=== PATIENT | female | born 1985 | race Caucasian/White ===

== ENCOUNTER 2016-07-04 13:33 | Emergency (ER) | payer OTHER ==
[~2016-07-04] VITALS: Ht 172.7 cm; Wt 81.8 kg
[~2016-07-04 13:33] MED LIST: ABILIFY15 MG PO; ALBUTEROL SULF8.5 GM IH; AMBIEN10 MG PO; AMOXICILLIN500 MG PO; Ambien PO; Amoxicillin PO; CYMBALTA60 MG PO; DEPAKOTE125 MG PO; DEPAKOTE500 MG PO; DESYREL100 MG PO; FLOXIN LEFT EAR; GEODON40 MG PO; GEODON80 MG PO; IBUPROFEN800 MG PO; KLONOPIN1 MG PO; LEXAPRO20 MG PO; Motrin PO; NAPROSYN500 MG PO; NEURONTIN600 MG PO; NEURONTIN800 MG PO; PRENATAL TABLE1 EAC3 PO; PRENATAL TABLE1 EACH PO; PROAIR HFA8.5 GM IH; PROMETHAZINE HC25 M1 PO; REMERON30 M2 PO; ROBITUSSIN AC,T10 ML PO; SEROQUEL200 MG PO; SEROQUEL400 MG PO; SEROQUEL50 MG PO; SPRINTEC1 EACH PO; TOPAMAX200 MG PO; TOPAMAX25 MG PO; TRAZODONE HCL100 MG PO; TYLENOL REGULA325 MG PO; WELLBUTRIN SR100 MG PO; WELLBUTRIN75 MG PO; ZOFRAN ODT4 MG PO; ZOFRAN4 MG PO
[2016-07-04 14:17] LABS: ADD MIUA? YES; BILIRUBIN NEGATIVE; BLOOD NEGATIVE; COLOR AMBER ((YELLOW)); GLUCOSE (STRIP) NEGATIVE; KETONES 5; LEUKOCYTES NEGATIVE; NITRITE NEGATIVE; PROTEIN (STRIP) 30; SPECIFIC GRAVITY 1.026 (1.000-1.030); UROBILINOGEN 0.2 MG/DL (0.2-1.0)
[2016-07-04 14:27] LABS: INTERNAL CONTROL VALID? YES
[2016-07-04 14:43] LABS: BACTERIA RARE /HPF; EPITHELIAL CELLS RARE /HPF; MUCUS 1+ /LPF; RED BLOOD CELLS 40-50 /HPF (0-5); WHITE BLOOD CELLS NONE SEEN /HPF (0-5)
[2016-07-04] MEDS ORDERED: FIORICET 50-301 EACH PO (17:34)
[2016-07-04] MEDS ORDERED: MOTRIN800 MG PO (17:34)
[2016-07-04 17:51] VITALS: BP 100/61
== END 2016-07-04 17:52 | disposition home or self-care (01) ==
LOC: EME 13:33
PROVIDERS: Physician Assistant
DX: S06.0X9A Concussion with loss of consciousness of unspecified duration, initial encounter (principal); J02.8 Acute pharyngitis due to other specified organisms; Z91.041 Radiographic dye allergy status; Y04.0XXA Assault by unarmed brawl or fight, initial encounter; Z88.6 Allergy status to analgesic agent; F17.200 Nicotine dependence, unspecified, uncomplicated
CPT/HCPCS: 70450; 81003; 84703; 87651 90; 99281; 99284

== ENCOUNTER 2017-02-10 14:36 | Emergency (ER) | payer OTHER ==
[~2017-02-10] VITALS: Ht 172.7 cm; Wt 78.7 kg
[~2017-02-10 14:36] MED LIST changes: +FIORICET 50-301 EACH PO; +MOTRIN800 MG PO
[2017-02-10 15:23] LABS: HEMATOCRIT 37.1 % (36.0-46.0); MCH 30.3 PG (29.0-34.0); MCHC 32.6 G/DL (30.0-36.0); MEAN PLAT.VOLUME 11.3 uM^3 (9.5-12.4); PLATELET COUNT 170 K/uL (156-360); RBC DIS.WIDTH-CV 13.8 % (11.8-14.6); RBC DIS.WIDTH-SD 47.4 % (39-53); RED BLOOD COUNT 3.99 M/uL (3.80-5.20); WHITE BLOOD COUNT 7.4 K/uL (4.1-10.2)
[2017-02-10 15:29] LABS: INTER. NORMALIZED RATIO 0.9; PROTHROMBIN TIME 10.3 SEC (10.2-12.9)
[2017-02-10 15:31] LABS: CHLORIDE 111 mEq/L (99-109); POTASSIUM 3.5 mEq/L (3.7-5.4); PTT 27.5 SEC (25-37); SODIUM 137 mEq/L (136-147)
[2017-02-10 15:33] LABS: GLUCOSE 86 mg/dL (70-99)
[2017-02-10 15:34] LABS: ANION GAP 8 MEQ/L (2-14)
[2017-02-10 15:37] LABS: GFR ESTIMATE (CALCULATED) > 59 mL/min/
[2017-02-10 15:38] LABS: UREA NITROGEN (BUN) 8 mg/dL (9-23)
[2017-02-10 15:44] LABS: TROP-I INTERPRETATION NEGATIVE; TROPONIN-I < 0.01 ng/mL (0.0-0.30)
[2017-02-10 16:30] VITALS: BP 120/81
== END 2017-02-10 17:26 | disposition home or self-care (01) ==
LOC: EME 14:36
PROVIDERS: Emergency Medicine
DX: M94.0 Chondrocostal junction syndrome [Tietze] (principal); R05 Cough; M25.512 Pain in left shoulder; R11.0 Nausea; R19.7 Diarrhea, unspecified; R53.1 Weakness; Z79.3 Long term (current) use of hormonal contraceptives; F17.200 Nicotine dependence, unspecified, uncomplicated
CPT/HCPCS: 71020; 80048; 84484; 85027; 85610; 85730; 93005; 99281; 99284; J1885

== ENCOUNTER 2017-04-02 20:17 | Emergency (ER) | payer OTHER ==
[~2017-04-02] VITALS: Ht 172.7 cm; Wt 82.2 kg
[2017-04-02 21:52] LABS: ADD MIUA? YES; BILIRUBIN NEGATIVE; BLOOD MODERATE; COLOR YELLOW ((YELLOW)); GLUCOSE (STRIP) NEGATIVE; KETONES NEGATIVE; LEUKOCYTES SMALL; NITRITE NEGATIVE; PROTEIN (STRIP) NEGATIVE; SPECIFIC GRAVITY 1.009 (1.000-1.030); UROBILINOGEN 0.2 MG/DL (0.2-1.0)
[2017-04-02 21:54] LABS: BASOPHIL COUNT 0.1 K/uL (0-0.1); EOSINOPHIL (%) 1.7 % (0-5); EOSINOPHIL COUNT 0.1 K/uL (0-0.3); HEMATOCRIT 38.5 % (36.0-46.0); IMMATURE GRANULOCYTE (%) 0.2 % (0.0-0.7); INSTRUMENT ABS NEUTROPHIL CT 3.8 K/uL; LYMPHOCYTE COUNT 1.9 K/uL (1.0-2.8); MCH 30.7 PG (29.0-34.0); MEAN PLAT.VOLUME 11.3 uM^3 (9.5-12.4); MONOCYTE (%) 6.8 % (3-12); MONOCYTE COUNT 0.4 K/uL (0-0.8); NEUTROPHIL (%) 60.3 % (45-76); NEUTROPHIL COUNT 3.8 K/uL (1.8-6.4); PLATELET COUNT 174 K/uL (156-360); RBC DIS.WIDTH-CV 13.5 % (11.8-14.6); RBC DIS.WIDTH-SD 46.2 % (39-53); RED BLOOD COUNT 4.14 M/uL (3.80-5.20); WHITE BLOOD COUNT 6.3 K/uL (4.1-10.2)
[2017-04-02 22:08] LABS: CHLORIDE 115 mEq/L (99-109); POTASSIUM 3.2 mEq/L (3.7-5.4); SODIUM 141 mEq/L (136-147)
[2017-04-02 22:10] LABS: GLUCOSE 86 mg/dL (70-99)
[2017-04-02 22:11] LABS: ADD MEDTOX COMMENT Y; AMPHETAMINE NEGATIVE (500 ng/mL); BARBITURATES NEGATIVE (200 ng/mL); BENZODIAZEPINES NEGATIVE (150 ng/mL); COCAINE NEGATIVE (150 ng/mL); INTERNAL CONTROLS VALID? YES; METHADONE NEGATIVE (200 ng/mL); METHAMPHETAMINE NEGATIVE (500 ng/mL); OPIATES (MORPHINE) NEGATIVE (100 ng/mL); OXYCODONE NEGATIVE (100 ng/mL); PHENCYCLIDINE NEGATIVE (25 ng/mL); PROPOXYPHENE NEGATIVE (300 ng/mL); THC CANNABINOIDS PRESUMPTIVE POSITIVE (50 ng/mL); TRICYCLIC ANTIDEPRESSANTS NEGATIVE (300 ng/mL)
[2017-04-02 22:12] LABS: ANION GAP 10 MEQ/L (2-14); TOTAL BILIRUBIN 0.2 mg/dL (0.0-1.0)
[2017-04-02 22:13] LABS: SERUM ETHYL ALCOHOL < 10 mg/dL
[2017-04-02 22:14] LABS: GFR ESTIMATE (CALCULATED) > 59 mL/min/
[2017-04-02 22:15] LABS: ALKALINE PHOSPHATASE 59 IU/L (3-129)
[2017-04-02 22:16] LABS: DIRECT BILIRUBIN 0.1 mg/dL (0.0-0.3); UREA NITROGEN (BUN) 7 mg/dL (9-23)
[2017-04-02 22:18] LABS: SALICYLATE < 5.0 MG/DL (15-30)
[2017-04-02 22:24] LABS: QUANTITATIVE HCG < 4.0 MIU/ML
[2017-04-02 22:24] LABS: AMORPHOUS PHOSPHATE CRYSTALS 2+; BACTERIA 2+ /HPF; CASTS NONE SEEN /LPF; CRYSTALS PRESENT; EPITHELIAL CELLS 1+ /HPF; MUCUS NONE SEEN /LPF; RED BLOOD CELLS 0-5 /HPF (0-5); WHITE BLOOD CELLS 0-5 /HPF (0-5)
[2017-04-02 22:45] VITALS: BP 141/101
== END 2017-04-02 22:46 | disposition home or self-care (01) ==
LOC: EME 20:17
PROVIDERS: Emergency Medicine
DX: F41.9 Anxiety disorder, unspecified (principal); F31.9 Bipolar disorder, unspecified; E87.6 Hypokalemia; Z91.14 Patient's other noncompliance with medication regimen; F17.200 Nicotine dependence, unspecified, uncomplicated
CPT/HCPCS: 80048; 80076; 81003; 84702; 84999; 85025; 90837; 99281; 99283; G0480

== ENCOUNTER 2017-07-07 14:03 | Emergency (ER) | payer OTHER ==
[~2017-07-07] VITALS: Ht 160 cm; Wt 81.5 kg
[2017-07-07 15:37] LABS: BASOPHIL (%) 0.6 % (0-1); BASOPHIL COUNT 0.1 K/uL (0-0.1); EOSINOPHIL COUNT 0.2 K/uL (0-0.3); HEMATOCRIT 39.3 % (36.0-46.0); HEMOGLOBIN 12.6 G/DL (11.9-15.5); IMMATURE GRANULOCYTE (%) 0.2 % (0.0-0.7); LYMPHOCYTE (%) 29.5 % (15-42); LYMPHOCYTE COUNT 2.5 K/uL (1.0-2.8); MCH 30.4 PG (29.0-34.0); MCHC 32.1 G/DL (30.0-36.0); MCV 94.9 FL (83-99); MONOCYTE (%) 6.2 % (3-12); MONOCYTE COUNT 0.5 K/uL (0-0.8); NEUTROPHIL (%) 61.5 % (45-76); NEUTROPHIL COUNT 5.2 K/uL (1.8-6.4); PLATELET COUNT 239 K/uL (156-360); RBC DIS.WIDTH-CV 14.1 % (11.8-14.6); RED BLOOD COUNT 4.14 M/uL (3.80-5.20); WHITE BLOOD COUNT 8.5 K/uL (4.1-10.2)
[2017-07-07 15:46] LABS: ALBUMIN 3.9 g/dL (3.2-4.8); CHLORIDE 113 mEq/L (99-109); POTASSIUM 3.9 mEq/L (3.7-5.4); SODIUM 139 mEq/L (136-147)
[2017-07-07 15:48] LABS: GLUCOSE 91 mg/dL (70-99); TOTAL PROTEIN 6.5 g/dL (6.4-8.3)
[2017-07-07 15:50] LABS: TOTAL BILIRUBIN 0.4 mg/dL (0.0-1.0)
[2017-07-07 15:52] LABS: ALKALINE PHOSPHATASE 60 IU/L (3-129); CREATININE 0.9 mg/dL (0.6-1.3); GFR ESTIMATE (CALCULATED) > 59 mL/min/
[2017-07-07 15:53] LABS: UREA NITROGEN (BUN) 10 mg/dL (9-23)
[2017-07-07 15:54] LABS: AST (GOT) 14 IU/L (2-34)
[2017-07-07 15:55] LABS: ALT (GPT) 29 IU/L (3-49); LIPASE 10 U/L (1.0-51.0)
[2017-07-07 17:54] LABS: APPEARANCE SL.HAZY ((CLEAR)); BILIRUBIN NEGATIVE; BLOOD NEGATIVE; COLOR STRAW ((YELLOW)); GLUCOSE (STRIP) NEGATIVE; KETONES NEGATIVE; LEUKOCYTES TRACE; NITRITE NEGATIVE; PROTEIN (STRIP) NEGATIVE; SPECIFIC GRAVITY 1.009 (1.000-1.030); UROBILINOGEN 0.2 MG/DL (0.2-1.0)
[2017-07-07 18:12] LABS: BACTERIA RARE /HPF; EPITHELIAL CELLS RARE /HPF; MUCUS NONE SEEN /LPF; RED BLOOD CELLS 0-5 /HPF (0-5); UCUL ADDED? NO; WHITE BLOOD CELLS 0-5 /HPF (0-5)
[2017-07-07] MEDS ORDERED: BENTYL20 MG PO (21:57)
[2017-07-07 22:03] VITALS: BP 103/62
== END 2017-07-07 22:05 | disposition home or self-care (01) ==
LOC: EME 14:03
PROVIDERS: Emergency Medicine
DX: R10.31 Right lower quadrant pain (principal); K21.9 Gastro-esophageal reflux disease without esophagitis; J45.909 Unspecified asthma, uncomplicated; F90.9 Attention-deficit hyperactivity disorder, unspecified type; F42.9 Obsessive-compulsive disorder, unspecified; F32.9 Major depressive disorder, single episode, unspecified; F31.9 Bipolar disorder, unspecified; G43.909 Migraine, unspecified, not intractable, without status migrainosus; F17.200 Nicotine dependence, unspecified, uncomplicated; Z91.041 Radiographic dye allergy status; Z88.5 Allergy status to narcotic agent; Z88.8 Allergy status to other drugs, medicaments and biological substances
CPT/HCPCS: 74176; 80053; 81003; 81025; 83605; 83690; 85025; 99281; 99285; J2270; J2405; J7030